=== PATIENT | male | born 1950 | race Caucasian/White ===

== ENCOUNTER → 2019-03-15 | Outpatient (CLI) | payer MEDICARE, OTHER ==
[~2019-03-15] MED LIST: ALBU8.5H8 INH; AMOX1TAB64 PO; ATOR10TA9 PO; BECL8.7A6 INH; BUDE0.5A INH; BUDE10.2 INH; CALC1CAP8 PO; CHOL2000 PO; CHOL40002 PO; CHRO1TAB7 PO; DUPI300S INJ; FURO20TA3 PO; HERBAL TEA PO; LANS30CA PO; METF500T17 PO; MONT10TA9 PO; POTA10TA6 PO; PRED20TA PO; PRED50TA PO; RIVA15TA PO; SERRAPEPTASE PO; SULF-169 PO; THEO600T PO; UBID50TA3 PO; VALS160T3 PO; ZILE600T PO; [UNRECOGNIZED DRUG - OTHER] PO
== END | disposition home or self-care (01) ==
LOC: CFH 12:23
PROVIDERS: ATTEND Internal Medicine
DX: J45.52 Severe persistent asthma with status asthmaticus (principal)
CPT/HCPCS: 71250

== ENCOUNTER 2019-03-19 09:48 | Outpatient (CLI) | payer MEDICARE, OTHER ==
[~2019-03-19 09:48] MED LIST changes: -CHOL40002 PO; -CHRO1TAB7 PO; -DUPI300S INJ; -FURO20TA3 PO; -HERBAL TEA PO; -METF500T17 PO; -POTA10TA6 PO; -PRED50TA PO; -SERRAPEPTASE PO; -ZILE600T PO
[2019-03-19] MEDS ORDERED: PRED50TA PO (10:30)
[2019-03-19] MEDS ORDERED: FURO20TA3 PO (10:30)
[2019-03-19] MEDS ORDERED: ZILE600T PO (10:30)
[2019-03-19] MEDS ORDERED: HERBAL TEA PO (10:30)
[2019-03-19] MEDS ORDERED: SERRAPEPTASE PO (10:30)
[2019-03-19] MEDS ORDERED: CHOL40002 PO (10:30)
[2019-03-19] MEDS ORDERED: METF500T17 PO (10:30)
[2019-03-19] MEDS ORDERED: POTA10TA6 PO (10:30)
[2019-03-19] MEDS ORDERED: CHRO1TAB7 PO (10:30)
[2019-03-19] MEDS ORDERED: DUPI300S INJ (10:30)
[2019-03-19 11:42] LABS: ALANINE AMINOTRANSFERASE 31 U/L (12-78); ALBUMIN 4.1 g/dL (3.4-5.0); ANION GAP 9 mmol/L (5-15); CALCIUM 9.6 mg/dL (8.5-10.1); CHLORIDE 107 mmol/L (98-107)
[2019-03-19 11:44] LABS: ALKALINE PHOSPHATASE 47 U/L (45-117); BILIRUBIN,TOTAL 0.9 mg/dL (0.2-1.0); TOTAL PROTEIN 7.3 g/dL (6.4-8.2)
== END 2019-03-19 23:59 | disposition home or self-care (01) ==
LOC: STAR 09:48
PROVIDERS: ATTEND Internal Medicine
DX: Z01.818 Encounter for other preprocedural examination (principal); J45.52 Severe persistent asthma with status asthmaticus; R00.0 Tachycardia, unspecified; I49.3 Ventricular premature depolarization; R94.31 Abnormal electrocardiogram [ECG] [EKG]
CPT/HCPCS: 36415; 80053; 80198; 82103; 82104; 82784; 82785; 86003; 86038; 86225; 86235; 86331; 86430; 86602; 86606; 86609; 86671; 93005

== ENCOUNTER 2019-03-23 05:52 | Day surgery (SDC) | payer MEDICARE, OTHER ==
[~2019-03-23] VITALS: Ht 182.9 cm; Wt 100.3 kg
[~2019-03-23 05:52] MED LIST changes: +CHOL40002 PO; +CHRO1TAB7 PO; +DUPI300S INJ; +FURO20TA3 PO; +HERBAL TEA PO; +LIDOCAINE 2%, 20ML ONE; +LIDOCAINE 4% TOPICAL SOLUTION 50 ML ONE; +LIDOCAINE GEL 2%, 5ML ONE; +METF500T17 PO; +POTA10TA6 PO; +PRED50TA PO; +SERRAPEPTASE PO; +ZILE600T PO
[2019-03-23 06:50] VITALS: BP 159/93
[2019-03-23] MEDS ORDERED: MIDAZOLAM 1 MG/ML, 5ML ONE (07:02)
[2019-03-23] MEDS ORDERED: FENTANYL PF 100 MCG/2ML ONE (07:02)
[2019-03-23] MEDS ORDERED: DIPHENHYDRAMINE 50 MG/ML, 1ML ONE (07:03)
[2019-03-23] MEDS ORDERED: GLYCOPYRROLATE 0.4 MG/2 ML, 2ML ONE (07:03)
[2019-03-23] MEDS ORDERED: SODIUM CHLORIDE 0.9% 1,000 ML IV SCH (07:26)
[2019-03-23] MEDS ORDERED: ALBUTEROL SULFATE 2.5 MG/3 ML ONE (07:30)
[2019-03-23] MEDS: ALBUTEROL SULFATE 2.5 MG/3 ML NPPB PRN ×2 (07:35→11:04)
[2019-06-07] MEDS ORDERED: DIGE1TAB PO (15:33)
[2019-06-14] MEDS ORDERED: ACID1TAB7 PO (10:33)
[2019-06-14] MEDS ORDERED: CARV12.52 PO (10:33)
[2019-06-14] MEDS ORDERED: INSU100I11 SQ-INSULIN (10:33)
== END 2019-03-23 11:55 | disposition home or self-care (01) ==
LOC: OUT 05:52
PROVIDERS: ATTEND Internal Medicine
DX: J45.50 Severe persistent asthma, uncomplicated (principal); I10 Essential (primary) hypertension; E11.9 Type 2 diabetes mellitus without complications; G47.33 Obstructive sleep apnea (adult) (pediatric); E66.9 Obesity, unspecified; Z79.84 Long term (current) use of oral hypoglycemic drugs; Z79.52 Long term (current) use of systemic steroids; Z79.899 Other long term (current) drug therapy; Z88.8 Allergy status to other drugs, medicaments and biological substances; Z86.718 Personal history of other venous thrombosis and embolism; Z86.711 Personal history of pulmonary embolism
CPT/HCPCS: 31660; 94640; 99152; 99153; C1886; J1200; J2250; J3010; J7030; J7613; 94060

== ENCOUNTER 2019-04-11 08:16 | Day surgery (SDC) | payer MEDICARE, OTHER ==
[~2019-04-11] VITALS: Ht 182.9 cm; Wt 99.5 kg
[2019-04-11 09:04] VITALS: BP 150/105
== END 2019-04-11 14:08 | disposition home or self-care (01) ==
LOC: OUT 08:16
PROVIDERS: ATTEND Internal Medicine
DX: J45.50 Severe persistent asthma, uncomplicated (principal); J32.0 Chronic maxillary sinusitis; G47.33 Obstructive sleep apnea (adult) (pediatric); Z79.899 Other long term (current) drug therapy; Z88.5 Allergy status to narcotic agent; Z88.8 Allergy status to other drugs, medicaments and biological substances; Z79.52 Long term (current) use of systemic steroids
CPT/HCPCS: 31660; 82962; 94640; 99152; 99153; C1886; J1200; J2250; J3010